=== PATIENT | female | born 1955 | race Hispanic/Latino ===

== ENCOUNTER 2016-07-18 13:12 | Emergency (ER) | payer SELFPAY ==
[2016-07-18 14:32] VITALS: BP 159/91
[2016-07-18 15:57] LABS: Basophils % (Auto) 0.7 % (0.0-1.8); Eosinophils % (Auto) 1.1 % (0.0-4.3); Hematocrit 43.2 % (30.3-42.9); Hemoglobin 14.3 gm/dl (10.1-14.3); Mean Corpuscular HGB Conc 33 % (30-34); Mean Corpuscular Volume 75 fl (79-97); Platelet Count 296 K/mm3 (140-440); Red Blood Count 5.79 M/mm3 (3.65-5.03); Red Cell Distribution Width 15.9 % (13.2-15.2); White Blood Count 4.4 K/mm3 (4.5-11.0)
[2016-07-18 16:00] LABS: Mean Corpuscular Hemoglobin 25 pg (28-32)
[2016-07-18 16:02] LABS: Alanine Aminotransferase 16 units/L (7-56); Albumin 4.2 g/dL (3.9-5); Albumin/Globulin Ratio 0.9 %; Alkaline Phosphatase 259 units/L (35-129); Bilirubin,Total 0.5 mg/dL (0.1-1.2); Blood Urea Nitrogen 13 mg/dL (7-17); Calcium 9.7 mg/dL (8.4-10.2); Carbon Dioxide 25 mmol/L (22-30); Glucose 105 mg/dL (65-100); Total Protein 9.1 g/dL (6.3-8.2)
[2016-07-18 16:03] LABS: Anion Gap 19 mmol/L; Chloride 98.4 mmol/L (98-107); Potassium 4.3 mmol/L (3.6-5.0); Sodium 138 mmol/L (137-145)
[2016-07-18 16:06] LABS: INR 0.95 (0.87-1.13)
--- NOTE | 2016-07-20 12:49 | ED Elopement Review ---
ED Pt Elopement review - Results review Lab results: Laboratory Tests 07/18/16 07/18/16 07/18/16 15:26 15:26 15:26 WBC 4.4 L RBC 5.79 H Hgb 14.3 Hct 43.2 H MCV 75 L MCH 25 L MCHC 33 RDW 15.9 H Plt Count 296 Lymph % (Auto) 28.7 [place] % (Auto) 5.7 Eos % (Auto) 1.1 Baso % (Auto) 0.7 Lymph # 1.3 [place] # 0.3 Eos # 0.0 Baso # 0.0 Seg Neutrophils % 63.8 Seg Neutrophils # 2.8 PT 12.6 INR 0.95 VBG pH Sodium 138 Potassium 4.3 Chloride 98.4 Carbon Dioxide 25 Anion Gap 19 BUN 13 Creatinine 0.4 L Estimated GFR > 60 BUN/Creatinine Ratio 32.50 Glucose 105 H Lactic Acid Calcium 9.7 Total Bilirubin 0.5 AST 21 ALT 16 Alkaline Phosphatase 259 H Total Protein 9.1 H Albumin 4.2 Albumin/Globulin Ratio 0.9 07/18/16 07/18/16 15:26 15:26 WBC RBC Hgb Hct MCV MCH MCHC RDW Plt Count Lymph % (Auto) [place] % (Auto) Eos % (Auto) Baso % (Auto) Lymph # [place] # Eos # Baso # Seg Neutrophils % Seg Neutrophils # PT INR VBG pH 7.295 L Sodium Potassium Chloride Carbon Dioxide Anion Gap BUN Creatinine Estimated GFR BUN/Creatinine Ratio Glucose Lactic Acid 1.8 Calcium Total Bilirubin AST ALT Alkaline Phosphatase Total Protein Albumin Albumin/Globulin Ratio - Call Back decision Pt Call Back Decision: No action required
== END 2016-07-18 19:35 | disposition left against medical advice (07) ==
LOC: ED 13:12
DX: M79.662 Pain in left lower leg (principal); Z53.21 Procedure and treatment not carried out due to patient leaving prior to being seen by health care provider
CPT/HCPCS: 36415; 80053; 82140; 82805; 85025; 85610; 87040

== ENCOUNTER 2017-10-16 10:15 | Emergency (ER) | payer OTHER ==
[2017-10-16 10:38] VITALS: BP 152/86
[2017-10-16] MEDS ORDERED: PERCOCET 5/325 PO ONE (12:21)
[2017-10-16] MEDS ORDERED: ZOFRAN ODT PO ONE (12:21)
[2017-10-16] MEDS ORDERED: TORADOL IM ONE (12:21)
--- NOTE | 2017-10-16 12:21 | Emergency Department Report ---
ED Extremity Problem HPI - General Chief complaint: Extremity Problem,Nontraumatic Stated complaint: LEFT LEG PAIN Time Seen by Provider: 10/16/17 12:09 Source: patient, family Mode of arrival: Ambulatory Limitations: No Limitations - History of Present Illness Initial comments: This is a 62-year-old female here report that she is having left leg pain from that she had 10 months. She said it started off as a small bump and then it spread. Patient says she was at [facility] where she stayed for 2 weeks and was released on September 02 for wound care and IV antibiotic. She says she was also there in March. Patient said that her left leg is infected and she hasn't been on any antibiotic for wound since August. She says she just moved to the area but other records showed that patient as being here 9 times since 2014 and her loss encounter on 07/20/2016 she was seen and elopement review was done by Dr. Rosas. She was also admitted in hospital 05/10/2015 and was discharged same day. Patient also has a history of polysubstance abuse. She reports her left leg pain is 10 out of 10 and sharp. She says she took over-the -counter medication but it's not helping. Denies any numbness or tingling to extremities. Denies any radiation of pain proximally. MD Complaint: extremity pain, extremity swelling, other (left leg wound) Onset/Timin -: month(s) Location: left, lower extremity History of Same: Yes -: No myalgia, Yes arthralgia, No fever, No associated dyspnea, No associated chest pain Radiation: none Severity scale (0 -10): 10 Quality: sharp Consistency: constant Improves with: rest Worsens with: weight bearing, walking, exertion, palpation Associated Symptoms: arthralgias, other (open wound to left leg). denies: chest pain, shortness of breath, fever, myalgias - Related Data Home Medications Medication Instructions Recorded Confirmed Last Taken No Known Home Medications [No 05/10/15 05/10/15 Unknown Reported Home Medications] Previous Rx's Medication Instructions Recorded Last Taken Type Ibuprofen [Motrin] 800 mg PO Q8HR PRN #15 tablet 10/16/17 Unknown Rx Allergies Allergy/AdvReac Type Severity Reaction Status Date / Time codeine Allergy Hives Verified 02/28/15 08:04 ED Review of Systems ROS: Stated complaint: LEFT LEG PAIN Other details as noted in HPI Constitutional: denies: chills, fever Eyes: denies: vision change ENT: denies: throat pain Respiratory: denies: cough, shortness of breath, SOB with exertion, SOB at rest , stridor, wheezing Cardiovascular: denies: chest pain, palpitations, dyspnea on exertion, edema, syncope Gastrointestinal: denies: abdominal pain, nausea, vomiting, diarrhea Genitourinary: denies: urgency, dysuria, discharge Musculoskeletal: joint swelling, arthralgia. denies: back pain, myalgia Skin: other (chronic open wound). denies: rash, lesions Neurological: denies: headache, weakness, numbness, paresthesias, confusion, abnormal gait, vertigo ED Past Medical Hx - Past Medical History Previous Medical History?: Yes Hx Liver Disease: Yes Hx COPD: Yes Additional medical history: hep C. MRSA - Surgical History Past Surgical History?: Yes Hx Cholecystectomy: Yes Additional Surgical History: hysterectomy. mastectomy - Family History Family history: hypertension - Social History Smoking Status: Former Smoker Substance Use Type: None - Medications Home Medications: Home Medications Medication Instructions Recorded Confirmed Last Taken Type No Known Home Medications [No 05/10/15 05/10/15 Unknown History Reported Home Medications] Ibuprofen [Motrin] 800 mg PO Q8HR PRN #15 tablet 10/16/17 Unknown Rx ED Physical Exam - General Limitations: No Limitations General appearance: alert, in no apparent distress - Head Head exam: Present: atraumatic, normocephalic, normal inspection - Eye Eye exam: Present: normal appearance, PERRL, EOMI Pupils: Present: normal accommodation - ENT ENT exam: Present: normal exam, normal orophraynx, mucous membranes moist, TM's normal bilaterally, normal external ear exam - Neck Neck exam: Present: normal inspection, full ROM. Absent: tenderness, lymphadenopathy - Respiratory Respiratory exam: Present: normal lung sounds bilaterally. Absent: respiratory distress, chest wall tenderness, accessory muscle use - Cardiovascular Cardiovascular Exam: Present: regular rate, normal rhythm, normal heart sounds. Absent: systolic murmur, diastolic murmur - GI/Abdominal GI/Abdominal exam: Present: soft, normal bowel sounds. Absent: distended, tenderness, guarding, rebound, rigid, organomegaly, mass, bruit, pulsatile mass , hernia - Extremities Exam Extremities exam: Present: normal inspection, full ROM, tenderness (left leg wound wound), normal capillary refill, other (no clubbing, cyanosis or edema. + 2 pulses to all extremities and no neurovascular compromise except patient with swelling to left leg and chronic open wound. No calf tenderness.). Absent: pedal edema, joint swelling, calf tenderness - Expanded Lower Extremity Exam Left Hip exam: Present: normal inspection, full ROM, pelvic stability. Absent: tenderness, swelling, abrasion, laceration, ecchymosis, deformity, crepidus, dislocation, erythema, external rotation, internal rotation, shortening Upper Leg exam: Present: normal inspection, full ROM. Absent: tenderness, swelling, abrasion, laceration, ecchymosis, deformity, crepidus, dislocation, erythema Knee exam: Present: normal inspection, full ROM, full knee extension. Absent: tenderness, swelling, abrasion, laceration, ecchymosis, deformity, crepidus, dislocation, erythema, effusion Lower Leg exam: Present: full ROM, tenderness (around), swelling. Absent: normal inspection, abrasion, laceration, ecchymosis, deformity, crepidus, dislocation, erythema, palpable cord, Dara's sign Ankle exam: Present: normal inspection, full ROM. Absent: tenderness, swelling , abrasion, laceration, ecchymosis, deformity, crepidus, dislocation, erythema Foot/Toe exam: Present: normal inspection, full ROM. Absent: tenderness, swelling, abrasion, laceration, ecchymosis, deformity, crepidus, dislocation, erythema, amputation, puncture wound, foreign body, calcaneal tenderness, tenderness at base of 5th metatarsal, nail avulsion, subungual hematoma Neuro vascular tendon exam: Present: no vascular compromise, significant pain with passive ROM of distal joint. Absent: pulse deficit, abnormal cap refill, motor deficit, sensory deficit, tendon deficit, extremity cold to touch, pallor , abnormal 2-point discrimination, decreased fine/light touch, foot drop, peroneal nerve deficit Gait: Positive: observed and limited by pain - Back Exam Back exam: Present: normal inspection, full ROM - Neurological Exam Neurological exam: Present: alert, oriented X3, normal gait, reflexes normal. Absent: motor sensory deficit - Psychiatric Psychiatric exam: Present: normal affect, normal mood - Skin Skin exam: Present: warm, dry, other (open wound left leg) - Expanded Skin Exam Expanded Type of lesion: Present: other (open wound) Distribution of rash: LLE (left leg) Description of rash: Present: size (20 x 19 cm left leg wound), tenderness, erythematous, swelling, discharge (scant amount of localized discharge), other ( wound bed is beefy red and clean. She has scant pus to fears areas and wound bed otherwise wound is clean). Absent: vesicular, blisters, petechial, purpuic , fluctuant, indurated ED Course Vital Signs 10/16/17 10/16/17 10/16/17 10:30 12:29 12:31 Temperature 97.8 F Pulse Rate 83 Respiratory 18 18 18 Rate Blood Pressure 152/86 O2 Sat by Pulse 96 Oximetry 10/16/17 14:01 Temperature 99.4 F Pulse Rate 65 Respiratory 20 Rate Blood Pressure O2 Sat by Pulse 99 Oximetry - Reevaluation(s) Reevaluation #1: 10/16/17 13:49 Patient given Percocet 5/325 2 tablets by mouth, Toradol 30 mg IM, Zofran 8 mg ODT for pain to left leg and she voiced that her pain is much better down to 2/ 10. Patient able to ambulate without any patient care assistant. Wound care done. please see procedure note for detail - Procedure Description Procedures done: Wound care: Left leg wound 20 x 19 cm. Wound bed is beefy-red with some area of pus which is scanned. No odor noted. Wound to left leg irrigated with normal saline, Xeroform petroleum gauze dressings in place, followed by none adhesive gauze dressing. And reinforced with Lizett. Patient tolerated procedure well and her pain is better. ED Medical Decision Making - Radiology Data Radiology results: report reviewed Ultrasound left lower extremity Doppler VASCULAR LAB.PRELIMINARY REPORT. LLE VENOUS DUPLEX DONE. NO EVIDENCE OF DVT/SVT IN VESSELS VISUALIZED. This is a preliminary read and final report to follow - Medical Decision Making ED course: 62-year-old female reports that she has non-healing wound to her left leg for 10 months. She said it starts off as a bump and it spread. She says she's been going to [facility] and also was admitted at [facility] for 2 weeks. Patient is reporting pain and that she thinks she has infection and she has not been on antibiotic for a while. Patient chart has been reviewed and she's been here multiple times over the years since 2014 and she had told me that she has not been here before. She reports that she is having pain. Patient on previous visit was positive for opiates and other substance. Patient was seen by myself and examined and she is in stable condition. Dr. Reddy Tijerina also. Patient and agrees with treatment plan. Patient with chronic nonhealing wound to left leg. Small area of pus noted which is scanned. She has left leg swelling. Pulses are 2+ and bounding to both feet. Wound bed is beefy red. Patient had a flare ultrasound of left lower extremity shows dictated by radiologist and report reviewed by myself. Which shows no SVT or DVT. Patient pain is controlled with pain medication. Aggressive wound care done please refer to procedure note for detail. She is feeling better. I explained her diagnosis and need for follow-up with [facility] to her and she voiced understanding. I: Chronic non-healing wound: Wound care done and see procedure note for details. Patient referred to wound care clinic. 2: Arthralgia left leg: Percocet 5/325 2 tablets by mouth, Toradol 30 mg IM and Zofran 4 mg ODT. Mg by mouth and will be discharged home and Motrin. 3-swelling left leg-ultrasound of her left lower extremity shows no DVT or SVT. Patient educated on diagnosis, diet to help with wound healing, good hand hygiene, medication, need to follow-up, and skin care and they voiced understanding. She was given discharge instruction wound care and also to follow-up with [facility]. Patient says she already call them and schedule appointment for follow-up. She voiced understanding of need to follow- up for further management of chronic nonhealing wound. Discharge home in stable condition to follow up with primary care physician and wound care center in 1 days . Patient said her pain is better, vital signs stable and she has low-grade fever that is less than 100 .I also instructed her that if her condition worsens to return to the emergency room. Patient voiced understanding and discharged home with prescription for Motrin. - Differential Diagnosis DVT, leg swelling. arthralgia Critical care attestation.: If time is entered above; I have spent that time in minutes in the direct care of this critically ill patient, excluding procedure time. ED Disposition Clinical Impression: Arthralgia of left lower leg, Local infection of wound Non-healing wound of lower extremity Qualifiers: Encounter type: initial encounter Laterality: left Qualified Code(s): S81.802A - Unspecified open wound, left lower leg, initial encounter Disposition: TO HOME OR SELFCARE Is pt being admited?: No Does the pt Need Aspirin: No Condition: Stable Instructions: Wound Infection (ED), Chronic Wound Care (ED), Wound Healing and Your Diet (ED), Arthralgia (ED) Additional Instructions: Please follow up with care Center as discussed. Call today to schedule an appointment for follow-up visit. Continue your wound care as was previously instructed by another physician until he can get an appointment with [facility] care [facility] Take Motrin for pain as prescribed Keep affected area clean and dry Discharge instructions on wound and diet. If you condition worsens, return to the emergency room Prescriptions: Ibuprofen [Motrin] 800 mg PO Q8HR PRN #15 tablet PRN Reason: pain to left leg Referrals: [facility] [Outside] - 10/17/17 PRIMARY CAREMD [Primary Care Provider] - 10/17/17 [facility] [Outside] - 10/17/17 Forms: Accompanied Note
== END 2017-10-16 14:03 | disposition home or self-care (01) ==
LOC: ED 10:15
DX: S81.802A Unspecified open wound, left lower leg, initial encounter (principal); M79.605 Pain in left leg; Z87.891 Personal history of nicotine dependence; Z90.710 Acquired absence of both cervix and uterus; Z88.5 Allergy status to narcotic agent; X58.XXXA Exposure to other specified factors, initial encounter; Y93.89 Activity, other specified; Y99.8 Other external cause status; Y92.89 Other specified places as the place of occurrence of the external cause
CPT/HCPCS: 93971; 96372; 99283; J1885; Q0162

== ENCOUNTER 2017-12-02 11:14 | Emergency (ER) | payer SELFPAY ==
[2017-12-02 11:43] VITALS: BP 150/75
== END 2017-12-02 11:38 | disposition left against medical advice (07) ==
LOC: ED 11:14
DX: S81.802A Unspecified open wound, left lower leg, initial encounter (principal); Z53.21 Procedure and treatment not carried out due to patient leaving prior to being seen by health care provider

== ENCOUNTER 2018-01-26 07:56 | Outpatient (CLI) | payer SELFPAY ==
[2018-01-26] MEDS ORDERED: XYLOCAINE TOPICAL 4% TP ONE ×2 (08:04→08:17)
== END 2018-01-26 07:57 | disposition home or self-care (01) ==
LOC: WOUND 07:56
PROVIDERS: ATTEND Surgery
DX: I87.332 Chronic venous hypertension (idiopathic) with ulcer and inflammation of left lower extremity (principal); L97.822 Non-pressure chronic ulcer of other part of left lower leg with fat layer exposed; J44.9 Chronic obstructive pulmonary disease, unspecified; Z90.710 Acquired absence of both cervix and uterus; Z87.891 Personal history of nicotine dependence

== ENCOUNTER 2018-01-30 09:24 | Outpatient (CLI) | payer SELFPAY ==
[2018-01-30] MEDS ORDERED: XYLOCAINE TOPICAL 4% TP ONE ×2 (09:26→09:35)
== END 2018-01-30 09:25 | disposition home or self-care (01) ==
LOC: WOUND 09:24
PROVIDERS: ATTEND Surgery
DX: I87.312 Chronic venous hypertension (idiopathic) with ulcer of left lower extremity (principal); L97.822 Non-pressure chronic ulcer of other part of left lower leg with fat layer exposed; J44.9 Chronic obstructive pulmonary disease, unspecified; Z90.710 Acquired absence of both cervix and uterus; Z87.891 Personal history of nicotine dependence

== ENCOUNTER 2018-02-13 09:46 | Outpatient (CLI) | payer OTHER ==
[2018-02-13] MEDS ORDERED: XYLOCAINE TOPICAL 4% TP ONE ×2 (10:02→10:08)
== END 2018-02-13 09:47 | disposition home or self-care (01) ==
LOC: WOUND 09:46
PROVIDERS: ATTEND Surgery
DX: I87.312 Chronic venous hypertension (idiopathic) with ulcer of left lower extremity (principal); L97.822 Non-pressure chronic ulcer of other part of left lower leg with fat layer exposed; J44.9 Chronic obstructive pulmonary disease, unspecified; Z90.710 Acquired absence of both cervix and uterus; Z87.891 Personal history of nicotine dependence
CPT/HCPCS: 99214; G0463

== ENCOUNTER 2018-09-25 08:43 | Outpatient (CLI) | payer MEDICARE ==
[2018-09-25] MEDS ORDERED: XYLOCAINE TOPICAL 4% TP ONE (09:00)
== END 2018-09-25 08:44 | disposition home or self-care (01) ==
LOC: WOUND 08:43
PROVIDERS: ATTEND Surgery
DX: L88 Pyoderma gangrenosum (principal); J44.9 Chronic obstructive pulmonary disease, unspecified; M62.81 Muscle weakness (generalized); Z87.891 Personal history of nicotine dependence; Z90.49 Acquired absence of other specified parts of digestive tract; Z90.710 Acquired absence of both cervix and uterus
CPT/HCPCS: 99215; G0463

== ENCOUNTER 2018-10-02 08:44 | Outpatient (CLI) | payer MEDICARE ==
[2018-10-02] MEDS ORDERED: XYLOCAINE TOPICAL 4% TP ONE (13:45)
[2018-10-02] MEDS ORDERED: AD OINTMENT TP PRN (13:45)
== END 2018-10-02 08:45 | disposition home or self-care (01) ==
LOC: WOUND 08:44
PROVIDERS: ATTEND Surgery
DX: L88 Pyoderma gangrenosum (principal); J44.9 Chronic obstructive pulmonary disease, unspecified; R16.1 Splenomegaly, not elsewhere classified; Z87.891 Personal history of nicotine dependence
CPT/HCPCS: 99215; G0463

== ENCOUNTER 2018-10-16 08:41 | Outpatient (CLI) | payer MEDICARE ==
[2018-10-16] MEDS ORDERED: XYLOCAINE TOPICAL 4% TP ONE (09:00)
== END 2018-10-16 08:42 | disposition home or self-care (01) ==
LOC: WOUND 08:41
PROVIDERS: ATTEND Surgery
DX: S81.802D Unspecified open wound, left lower leg, subsequent encounter (principal); L88 Pyoderma gangrenosum; J44.9 Chronic obstructive pulmonary disease, unspecified; R16.1 Splenomegaly, not elsewhere classified; Z87.891 Personal history of nicotine dependence; X58.XXXD Exposure to other specified factors, subsequent encounter
CPT/HCPCS: 99214; G0463

== ENCOUNTER 2018-10-23 09:16 | Outpatient (CLI) | payer MEDICARE ==
[2018-10-23] MEDS ORDERED: XYLOCAINE TOPICAL 4% TP ONE (09:22)
== END 2018-10-23 09:17 | disposition home or self-care (01) ==
LOC: WOUND 09:16
PROVIDERS: ATTEND Surgery
DX: L88 Pyoderma gangrenosum (principal); J44.9 Chronic obstructive pulmonary disease, unspecified; R16.1 Splenomegaly, not elsewhere classified; Z87.891 Personal history of nicotine dependence
CPT/HCPCS: 99214; G0463

== ENCOUNTER 2018-10-30 09:08 | Outpatient (CLI) | payer MEDICARE | END 2018-10-30 09:09 | disposition home or self-care (01) | LOC: WOUND 09:08 | PROVIDERS: ATTEND Surgery | DX: L88 Pyoderma gangrenosum (principal); J44.9 Chronic obstructive pulmonary disease, unspecified; R16.1 Splenomegaly, not elsewhere classified; Z87.891 Personal history of nicotine dependence | CPT/HCPCS: 99214; G0463 ==

== ENCOUNTER 2018-11-20 09:16 | Outpatient (CLI) | payer MEDICARE | END 2018-11-20 09:17 | disposition home or self-care (01) | LOC: WOUND 09:16 | PROVIDERS: ATTEND Surgery | DX: L88 Pyoderma gangrenosum (principal); J44.9 Chronic obstructive pulmonary disease, unspecified; R16.1 Splenomegaly, not elsewhere classified; Z87.891 Personal history of nicotine dependence | CPT/HCPCS: 99214; G0463 ==

== ENCOUNTER 2018-11-27 09:05 | Outpatient (CLI) | payer MEDICARE | END 2018-11-27 09:06 | disposition home or self-care (01) | LOC: WOUND 09:05 | PROVIDERS: ATTEND Surgery | DX: L88 Pyoderma gangrenosum (principal); J44.9 Chronic obstructive pulmonary disease, unspecified; R16.1 Splenomegaly, not elsewhere classified; Z87.891 Personal history of nicotine dependence | CPT/HCPCS: 99214; G0463 ==

== ENCOUNTER 2019-01-08 09:22 | Outpatient (CLI) | payer MEDICARE | END 2019-01-08 09:23 | disposition home or self-care (01) | LOC: WOUND 09:22 | PROVIDERS: ATTEND Surgery | DX: L88 Pyoderma gangrenosum (principal); J44.9 Chronic obstructive pulmonary disease, unspecified; R16.1 Splenomegaly, not elsewhere classified; Z87.891 Personal history of nicotine dependence | CPT/HCPCS: 99214; G0463 ==

== ENCOUNTER 2019-01-29 09:05 | Outpatient (CLI) | payer MEDICARE | END 2019-01-29 09:06 | disposition home or self-care (01) | LOC: WOUND 09:05 | PROVIDERS: ATTEND Surgery | DX: L88 Pyoderma gangrenosum (principal); J44.9 Chronic obstructive pulmonary disease, unspecified; R16.1 Splenomegaly, not elsewhere classified; Z87.891 Personal history of nicotine dependence | CPT/HCPCS: 99214; G0463 ==

== ENCOUNTER 2019-02-05 08:58 | Outpatient (CLI) | payer MEDICARE | END 2019-02-05 08:59 | disposition home or self-care (01) | LOC: WOUND 08:58 | PROVIDERS: ATTEND Surgery | DX: L88 Pyoderma gangrenosum (principal); J44.9 Chronic obstructive pulmonary disease, unspecified; R16.1 Splenomegaly, not elsewhere classified; Z87.891 Personal history of nicotine dependence | CPT/HCPCS: 99214; G0463 ==

== ENCOUNTER 2019-02-26 08:45 | Outpatient (CLI) | payer MEDICARE | END 2019-02-26 08:46 | disposition home or self-care (01) | LOC: WOUND 08:45 | PROVIDERS: ATTEND Surgery | DX: L88 Pyoderma gangrenosum (principal); J44.9 Chronic obstructive pulmonary disease, unspecified; R16.1 Splenomegaly, not elsewhere classified; Z87.891 Personal history of nicotine dependence | CPT/HCPCS: 99215; G0463 ==

== ENCOUNTER 2019-03-19 08:25 | Outpatient (CLI) | payer MEDICARE | END 2019-03-19 08:26 | disposition home or self-care (01) | LOC: WOUND 08:25 | PROVIDERS: ATTEND Surgery | DX: L88 Pyoderma gangrenosum (principal); J44.9 Chronic obstructive pulmonary disease, unspecified; R16.1 Splenomegaly, not elsewhere classified; Z87.891 Personal history of nicotine dependence | CPT/HCPCS: 99214; G0463 ==

== ENCOUNTER 2019-04-02 09:30 | Outpatient (CLI) | payer MEDICARE | END 2019-04-02 09:31 | disposition home or self-care (01) | LOC: WOUND 09:30 | PROVIDERS: ATTEND Surgery | DX: L88 Pyoderma gangrenosum (principal); J44.9 Chronic obstructive pulmonary disease, unspecified; R16.1 Splenomegaly, not elsewhere classified; Z87.891 Personal history of nicotine dependence | CPT/HCPCS: 99214; G0463 ==

== ENCOUNTER 2019-04-09 09:21 | Outpatient (CLI) | payer MEDICARE | END 2019-04-09 09:22 | disposition home or self-care (01) | LOC: WOUND 09:21 | PROVIDERS: ATTEND Surgery | DX: L88 Pyoderma gangrenosum (principal); J44.9 Chronic obstructive pulmonary disease, unspecified; R16.1 Splenomegaly, not elsewhere classified; Z87.891 Personal history of nicotine dependence | CPT/HCPCS: 99215; G0463 ==

== ENCOUNTER 2019-04-16 09:16 | Outpatient (CLI) | payer MEDICARE | END 2019-04-16 09:17 | disposition home or self-care (01) | LOC: WOUND 09:16 | PROVIDERS: ATTEND Surgery | DX: L88 Pyoderma gangrenosum (principal); J44.9 Chronic obstructive pulmonary disease, unspecified; R16.1 Splenomegaly, not elsewhere classified; Z87.891 Personal history of nicotine dependence | CPT/HCPCS: 99214; G0463 ==

== ENCOUNTER 2019-05-21 09:34 | Outpatient (CLI) | payer MEDICARE ==
--- NOTE | 2019-05-21 10:48 | History and Physical Report ---
Medications and Allergies Allergies Allergy/AdvReac Type Severity Reaction Status Date / Time codeine Allergy Hives Verified 02/28/15 08:04 Home Medications Medication Instructions Recorded Confirmed Last Taken Type No Known Home Medications [No 05/10/15 05/10/15 Unknown History Reported Home Medications] Ibuprofen [Motrin] 800 mg PO Q8HR PRN #15 tablet 10/16/17 Unknown Rx
== END 2019-05-21 09:35 | disposition home or self-care (01) ==
LOC: WOUND 09:34
PROVIDERS: ATTEND Surgery
DX: L88 Pyoderma gangrenosum (principal); J44.9 Chronic obstructive pulmonary disease, unspecified; R16.1 Splenomegaly, not elsewhere classified; Z87.891 Personal history of nicotine dependence; Z90.710 Acquired absence of both cervix and uterus
CPT/HCPCS: 87075; 87116; G0463; 87076; 87186; 99214

== ENCOUNTER 2019-06-11 08:51 | Outpatient (CLI) | payer MEDICARE | END 2019-06-11 08:52 | disposition home or self-care (01) | LOC: WOUND 08:51 | PROVIDERS: ATTEND Surgery | DX: L88 Pyoderma gangrenosum (principal); J44.9 Chronic obstructive pulmonary disease, unspecified; J70.5 Respiratory conditions due to smoke inhalation; R16.1 Splenomegaly, not elsewhere classified; Z87.891 Personal history of nicotine dependence; Z90.710 Acquired absence of both cervix and uterus | CPT/HCPCS: 99214; G0463 ==

== ENCOUNTER 2019-07-02 10:00 | Outpatient (CLI) | payer MEDICARE | END 2019-07-02 10:01 | disposition home or self-care (01) | LOC: WOUND 10:00 | PROVIDERS: ATTEND Surgery | DX: L88 Pyoderma gangrenosum (principal); J44.9 Chronic obstructive pulmonary disease, unspecified; J70.5 Respiratory conditions due to smoke inhalation; R16.1 Splenomegaly, not elsewhere classified; Z87.891 Personal history of nicotine dependence; Z90.710 Acquired absence of both cervix and uterus | CPT/HCPCS: 99215; G0463 ==

== ENCOUNTER 2019-07-16 09:56 | Outpatient (CLI) | payer MEDICARE ==
[2019-07-16] MEDS ORDERED: LIDOCAINE (4%) 40 MG/ML TOPICAL SOLN 50 ML BOTTLE TP ONE (10:28)
== END 2019-07-16 09:57 | disposition home or self-care (01) ==
LOC: WOUND 09:56
PROVIDERS: ATTEND Surgery
DX: L88 Pyoderma gangrenosum (principal); J70.5 Respiratory conditions due to smoke inhalation; J44.9 Chronic obstructive pulmonary disease, unspecified; R16.1 Splenomegaly, not elsewhere classified; Z87.891 Personal history of nicotine dependence; Z90.710 Acquired absence of both cervix and uterus
CPT/HCPCS: 99214; G0463

== ENCOUNTER 2019-07-30 09:50 | Outpatient (CLI) | payer MEDICARE | END 2019-07-30 09:51 | disposition home or self-care (01) | LOC: WOUND 09:50 | PROVIDERS: ATTEND Surgery | DX: L88 Pyoderma gangrenosum (principal); J70.5 Respiratory conditions due to smoke inhalation; J44.9 Chronic obstructive pulmonary disease, unspecified; R16.1 Splenomegaly, not elsewhere classified; Z87.891 Personal history of nicotine dependence; Z90.710 Acquired absence of both cervix and uterus | CPT/HCPCS: 99214; G0463 ==

== ENCOUNTER 2019-08-06 10:02 | Outpatient (CLI) | payer MEDICARE | END 2019-08-06 10:03 | disposition home or self-care (01) | LOC: WOUND 10:02 | PROVIDERS: ATTEND Surgery | DX: L88 Pyoderma gangrenosum (principal); J70.5 Respiratory conditions due to smoke inhalation; Z87.891 Personal history of nicotine dependence; J44.9 Chronic obstructive pulmonary disease, unspecified; R16.1 Splenomegaly, not elsewhere classified | CPT/HCPCS: 99214; G0463 ==

== ENCOUNTER 2019-08-16 10:27 | Outpatient (CLI) | payer MEDICARE | END 2019-08-16 10:28 | disposition home or self-care (01) | LOC: WOUND 10:27 | PROVIDERS: ATTEND Surgery | DX: L88 Pyoderma gangrenosum (principal); J70.5 Respiratory conditions due to smoke inhalation; J44.9 Chronic obstructive pulmonary disease, unspecified; R16.1 Splenomegaly, not elsewhere classified; Z87.891 Personal history of nicotine dependence | CPT/HCPCS: 99214; G0463 ==

== ENCOUNTER 2019-08-30 13:33 | Outpatient (CLI) | payer MEDICARE | END 2019-08-30 13:34 | disposition home or self-care (01) | LOC: WOUND 13:33 | PROVIDERS: ATTEND Surgery | DX: L88 Pyoderma gangrenosum (principal); J70.5 Respiratory conditions due to smoke inhalation; J44.9 Chronic obstructive pulmonary disease, unspecified; R16.1 Splenomegaly, not elsewhere classified; Z87.891 Personal history of nicotine dependence | CPT/HCPCS: 99214; G0463 ==

== ENCOUNTER 2019-10-04 13:00 | Outpatient (CLI) | payer MEDICARE | END 2019-10-04 23:59 | disposition home or self-care (01) | LOC: WOUND 13:00 | PROVIDERS: ATTEND Surgery | DX: L88 Pyoderma gangrenosum (principal); J44.9 Chronic obstructive pulmonary disease, unspecified; R16.1 Splenomegaly, not elsewhere classified; Z90.710 Acquired absence of both cervix and uterus; Z87.891 Personal history of nicotine dependence | CPT/HCPCS: 99214; G0463 ==